=== PATIENT | male | born 1980 | race Caucasian/White ===

== ENCOUNTER 2022-08-10 12:16 | Emergency (ER) | payer BC ==
[~2022-08-10] VITALS: Ht 157.5 cm; Wt 82.0 kg
[2022-08-10 12:52] LABS: BASOPHILS % 0.3 % (0.0-2.0); EOSINOPHILS % 0.2 % (0.0-5.0); HEMATOCRIT. 40.5 % (42.0-52.0); LYMPHOCYTES % 21.4 % (20.0-50.0); MEAN CORPUSCULAR HEMOGLOBIN 30.4 pg (28.0-32.0); MEAN PLATELET VOLUME 7.7 fl (7.4-10.4); MONOCYTES % 5.2 % (2.0-8.0); NEUTROPHILS % 72.9 % (40.0-76.0); PLATELET 272 x1000/uL (130-400); RED BLOOD CELL COUNT 4.61 mill/uL (4.7-6.1); RED CELL DISTRIBUTION WIDTH 13.3 % (11.6-14.6)
[2022-08-10 12:58] LABS: CHLORIDE 102 mEq/L (98-107)
[2022-08-10] MEDS ORDERED: SODIUM CHLORIDE 0.9% 1,000 ML IV ONE (13:00)
[2022-08-10] MEDS ORDERED: ONDANSETRON HCL 4MG/2ML INJ IV ONE (13:00)
[2022-08-10 13:35] VITALS: BP 121/69
[2022-08-10] MEDS ORDERED: ONDA4TAB11 PO (14:23)
== END 2022-08-10 15:21 | disposition home or self-care (01) ==
LOC: ER 12:16
DX: R11.2 Nausea with vomiting, unspecified (principal)
CPT/HCPCS: 36415; 80053; 83690; 85025; 93005; 96361; 96374; 99284; J2405; J7030; Z7610